=== PATIENT | female | born 1935 | race Caucasian/White ===

== ENCOUNTER → 2019-05-08 | Outpatient (CLI) | payer MEDICARE ==
[~2019-05-08] MED LIST: CALC1CAP8 PO; CHOL200052 PO; DIVA-59 PO; DIVA250T4 PO; LEVO25TA4 PO; LEVO75TA5 PO; ZOLE5INF IV
[2019-05-08 09:29] LABS: BASOPHILS # (AUTO) 0.03 x10^3/uL (0-0.1); BASOPHILS % (AUTO) 1 % (0-1); EOSINOPHILS # (AUTO) 0.07 x10^3/uL (0-0.4); EOSINOPHILS % (AUTO) 2 % (1-7); LYMPHOCYTES # (AUTO) 1.19 x10^3/uL (1-3.4); LYMPHOCYTES % (AUTO) 26 % (22-44); MD NO; MEAN CORPUSCULAR HEMOGLOBIN 30.8 pg (27.0-34.8); MEAN CORPUSCULAR HGB CONC 33.1 g/dL (32.4-35.8); MEAN CORPUSCULAR VOLUME 93.1 fL (80-100); MEAN PLATELET VOLUME 7.6 fL (7.4-10.4); MONOCYTES # (AUTO) 0.35 x10^3/uL (0.2-0.8); MONOCYTES % (AUTO) 8 % (2-9); NEUTROPHILS # (AUTO) 2.95 x10^3/uL (1.8-6.8); NEUTROPHILS % (AUTO) 64 % (42-75); PLATELET COUNT 182 x10^3/uL (130-400); RED BLOOD COUNT 4.66 x10^6/uL (3.82-5.3); RED CELL DISTRIBUTION WIDTH 14.4 % (9.6-15.2)
[2019-05-08 09:34] LABS: INTERNATIONAL NORMALIZED RATIO 0.95 (0.93-1.1)
[2019-05-08 09:37] LABS: ALBUMIN 3.8 g/dL (3.4-5.0); ANION GAP 6 mmol/L (5-15); CALCIUM 10.2 mg/dL (8.5-10.1); CHLORIDE 107 mmol/L (98-107)
[2019-05-08 09:40] LABS: ALANINE AMINOTRANSFERASE 12 U/L (12-78); ALKALINE PHOSPHATASE 40 U/L (45-117); BILIRUBIN,TOTAL 0.6 mg/dL (0.2-1.0); CREATININE 0.93 mg/dL (0.55-1.02); TOTAL PROTEIN 7.1 g/dL (6.4-8.2)
== END | disposition home or self-care (01) ==
LOC: STAR 08:12
PROVIDERS: ATTEND Specialist
DX: Z01.811 Encounter for preprocedural respiratory examination (principal); N95.0 Postmenopausal bleeding
CPT/HCPCS: 36415; 71046; 80053; 85025; 85610; 85730; 93005

== ENCOUNTER 2019-05-12 09:22 | Day surgery (SDC) | payer MEDICARE ==
[~2019-05-12] VITALS: Ht 154.9 cm; Wt 56.3 kg
[2019-05-12] MEDS ORDERED: LACTATED RINGERS 1,000 ML IV SCH (09:44)
[2019-05-12 10:12] VITALS: BP 150/84
[2019-05-12] MEDS ORDERED: ONDANSETRON 2MG/ML, 2ML ONE (12:20)
[2019-05-12] MEDS ORDERED: DEXAMETHASONE 4 MG/ML, 1ML ONE (12:20)
[2019-05-12] MEDS ORDERED: FENTANYL PF 100 MCG/2ML ONE (12:20)
[2019-05-12] MEDS ORDERED: ACETAMINOPHEN 325 MG TABLET PO PRN (13:00)
[2019-05-12] MEDS ORDERED: OXYcodone 5 MG/5 ML ORAL.SOL UDC PO PRN (13:00)
[2019-05-12] MEDS ORDERED: HYDROmorphone 2 MG/ML, 1ML IVPush PRN (13:00)
[2019-05-12] MEDS ORDERED: MEPERIDINE/PF 25MG/0.5ML IVPush PRN (13:00)
[2019-05-12] MEDS ORDERED: HALOPERIDOL 5 MG/ML IV PRN (13:00)
[2019-05-12] MEDS ORDERED: PROMETHAZINE 25 MG/ML, 1ML IV PRN (13:00)
[2019-05-12] MEDS ORDERED: FENTANYL PF 100 MCG/2ML IV PRN (13:00)
[2019-05-12] MEDS ORDERED: hydrALAzine 20 MG/ML, 1ML IV PRN (13:00)
== END 2019-05-12 15:25 | disposition home or self-care (01) ==
LOC: OUT 09:22
PROVIDERS: ATTEND Specialist
DX: N95.0 Postmenopausal bleeding (principal); N85.8 Other specified noninflammatory disorders of uterus; E03.9 Hypothyroidism, unspecified; F32.9 Major depressive disorder, single episode, unspecified; E78.5 Hyperlipidemia, unspecified; F41.9 Anxiety disorder, unspecified; Z87.891 Personal history of nicotine dependence; C54.1 Malignant neoplasm of endometrium
CPT/HCPCS: 58120; 88305; 88341; 88342; 88360; J1100; J2405; J3010; J7120

== ENCOUNTER 2019-06-12 09:53 | Outpatient (CLI) | payer MEDICARE | END 2019-06-12 23:59 | disposition home or self-care (01) | LOC: STAR 09:53 | PROVIDERS: ATTEND Specialist | DX: Z01.818 Encounter for other preprocedural examination (principal); C54.1 Malignant neoplasm of endometrium | CPT/HCPCS: 36415; 80053; 81001; 85025; 85610; 85730; 86304; 87086; 93005 ==

== ENCOUNTER 2019-07-28 07:54 | Outpatient (CLI) | payer MEDICARE ==
[~2019-07-28 07:54] MED LIST changes: +CHOL2000 PO; +DIVA125T2 PO
[2019-09-01] MEDS ORDERED: DIVA500T2 PO (09:49)
== END 2019-07-28 23:59 | disposition home or self-care (01) ==
LOC: ROC 07:54
PROVIDERS: ATTEND Radiology Radiation Oncology
DX: C54.1 Malignant neoplasm of endometrium (principal); F31.9 Bipolar disorder, unspecified; F41.8 Other specified anxiety disorders; E78.00 Pure hypercholesterolemia, unspecified; E03.9 Hypothyroidism, unspecified; F17.210 Nicotine dependence, cigarettes, uncomplicated; Z90.49 Acquired absence of other specified parts of digestive tract; Z78.0 Asymptomatic menopausal state
CPT/HCPCS: G0463

== ENCOUNTER 2019-10-14 08:13 | Outpatient (CLI) | payer MEDICARE ==
[~2019-10-14 08:13] MED LIST changes: +DIVA500T2 PO
== END 2019-10-14 23:59 | disposition home or self-care (01) ==
LOC: ROC 08:13
PROVIDERS: ATTEND Radiology Radiation Oncology
DX: C54.1 Malignant neoplasm of endometrium (principal)
CPT/HCPCS: G0463

== ENCOUNTER → 2020-03-22 | Outpatient (CLI) | payer MEDICARE ==
[~2020-03-22] MED LIST changes: +OMNIPAQUE 350 MG/ML, 100ML BOTTLE ONE
== END | disposition home or self-care (01) ==
LOC: CFH 09:33
PROVIDERS: ATTEND Registered Nurse Maternal Newborn
DX: C54.1 Malignant neoplasm of endometrium (principal); N13.30 Unspecified hydronephrosis
CPT/HCPCS: 74177; Q9967

== ENCOUNTER 2020-04-02 07:59 | Outpatient (CLI) | payer MEDICARE ==
[~2020-04-02 07:59] MED LIST changes: -OMNIPAQUE 350 MG/ML, 100ML BOTTLE ONE
== END 2020-04-02 23:59 | disposition home or self-care (01) ==
LOC: ROC 07:59
PROVIDERS: ATTEND Radiology Radiation Oncology
DX: C54.1 Malignant neoplasm of endometrium (principal)
CPT/HCPCS: G0463

== ENCOUNTER 2020-04-28 10:20 | Outpatient (CLI) | payer MEDICARE ==
[2020-04-28] MEDS ORDERED: FUROSEMIDE 20 MG/2 ML ONE (10:53)
== END 2020-04-28 23:59 | disposition home or self-care (01) ==
LOC: RAD 10:20
PROVIDERS: ATTEND Registered Nurse Maternal Newborn
DX: C54.1 Malignant neoplasm of endometrium (principal); N28.89 Other specified disorders of kidney and ureter
CPT/HCPCS: 78708; A9562; J1940

== ENCOUNTER → 2020-09-01 | Outpatient (CLI) | payer MEDICARE | END | disposition home or self-care (01) | LOC: ROC 09:08 | PROVIDERS: ATTEND Radiology Radiation Oncology | DX: C54.1 Malignant neoplasm of endometrium (principal) | CPT/HCPCS: G0463 ==

== ENCOUNTER 2021-03-11 07:42 | Outpatient (CLI) | payer MEDICARE | END 2021-03-11 23:59 | disposition home or self-care (01) | LOC: ROC 07:42 | PROVIDERS: ATTEND Radiology Radiation Oncology | DX: Z08 Encounter for follow-up examination after completed treatment for malignant neoplasm (principal); Z85.42 Personal history of malignant neoplasm of other parts of uterus | CPT/HCPCS: G0463 ==

== ENCOUNTER 2021-07-20 10:22 | Outpatient (CLI) | payer MEDICARE ==
[2021-07-20 11:05] LABS: ALANINE AMINOTRANSFERASE 12 U/L (12-78); ALBUMIN 3.5 g/dL (3.4-5.0); ANION GAP 6 mmol/L (5-15); CALCIUM 9.9 mg/dL (8.5-10.1); CHLORIDE 104 mmol/L (98-107)
[2021-07-20 11:15] LABS: ALKALINE PHOSPHATASE 39 U/L (45-117); BILIRUBIN,TOTAL 0.7 mg/dL (0.2-1.0); CREATININE 0.75 mg/dL (0.55-1.02); TOTAL PROTEIN 7.3 g/dL (6.4-8.2)
== END 2021-07-20 23:59 | disposition home or self-care (01) ==
LOC: LAB 10:22
PROVIDERS: ATTEND Internal Medicine
DX: M81.0 Age-related osteoporosis without current pathological fracture (principal); E03.9 Hypothyroidism, unspecified; E55.9 Vitamin D deficiency, unspecified
CPT/HCPCS: 36415; 80053; 82306; 84443